=== PATIENT | female | born 2000 | race Caucasian/White ===

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

== ENCOUNTER 2019-01-12 15:07 | Emergency (ER) | payer OTHER, MEDICAID | END 2019-01-12 15:45 | disposition left against medical advice (07) | LOC: ER 15:07 | DX: Z53.21 Procedure and treatment not carried out due to patient leaving prior to being seen by health care provider (principal) ==

== ENCOUNTER 2019-08-02 15:28 | Emergency (ER) | payer OTHER, MEDICAID ==
[2019-08-02 15:35] VITALS: BP 118/68
--- NOTE | 2019-08-02 16:12 | ER Document Report ---
ED Medical Screen (RME) - General Chief Complaint: Lower Abdominal Pain Stated Complaint: ADBOMINAL PAIN Time Seen by Provider: 08/02/19 16:09 Primary Care Provider: LARRY SHAIKH MD [Primary Care Provider] - Follow up as needed Mode of Arrival: Ambulatory Information source: Patient Notes: 18-year-old female presented to ED for complaint of left pelvic and and left flank pain. She states she has nauseated yesterday not today. Last menstrual period was 07/22/2019. She states she has some frequency but no urgency or burning. She states she has had no abnormal vaginal discharge. She states she does have a history of an ovarian cyst. She does not smoke drink or drugs but does use vapor cigarettes. She is alert oriented respirations regular and unlabored speaking in full sentences. I have greeted and performed a rapid initial assessment of this patient. A comprehensive ED assessment and evaluation of the patient, analysis of test results and completion of medical decision making process will be conducted by an additional ED providers. TRAVEL OUTSIDE OF THE [place] IN LAST 30 DAYS: No - Related Data Allergies/Adverse Reactions: No Known Allergies Allergy (Verified 01/12/19 15:08) Past Medical History Renal/ Medical History: Denies: Hx Kidney Stones - kidney infection, Hx Peritoneal Dialysis Musculoskeltal Medical History: Reports Hx Musculoskeletal Deformity Past Surgical History: Reports: Hx Orthopedic Surgery - R thumb - Immunizations Immunizations up to date: Yes Hx Diphtheria, Pertussis, Tetanus Vaccination: Yes Physical Exam - Vital signs Vitals: Temp Pulse Resp BP Pulse Ox 98.9 F 87 18 118/68 99 08/02/19 15:34 08/02/19 15:34 08/02/19 15:34 08/02/19 15:34 08/02/19 15:34 Course - Vital Signs Vital signs: Temp Pulse Resp BP Pulse Ox 98.9 F 87 18 118/68 99 08/02/19 15:34 08/02/19 15:34 08/02/19 15:34 08/02/19 15:34 08/02/19 15:34 Doctor's Discharge - Discharge Referrals: LARRY SHAIKH MD [Primary Care Provider] - Follow up as needed
[2019-08-02 16:52] LABS: APPEARANCE,URINE SLIGHTLY-CLOUDY; BILIRUBIN,URINE NEGATIVE (NEGATIVE); COLOR,URINE YELLOW; GLUCOSE, URINE NEGATIVE (NEGATIVE); KETONES,URINE NEGATIVE (NEGATIVE); PROTEIN,URINE NEGATIVE (NEGATIVE); URINE SPECIFIC GRAVITY 1.008; UROBILINOGEN,URINE NEGATIVE mg/dL (<2.0)
--- NOTE | 2019-08-02 17:20 | ER Document Report ---
ED General - General Chief Complaint: Abdominal Pain Stated Complaint: ADBOMINAL PAIN Time Seen by Provider: 08/02/19 16:09 Primary Care Provider: LARRY SHAIKH MD [NO LOCAL MD] - Follow up in 1 week Mode of Arrival: Ambulatory Information source: Patient Notes: 18-year-old female presents emergency department with complaints of left-sided flank pain left pelvic pain. Reports she is had the symptoms for months. Reports she has a history of ovarian cyst but the same pain seems to be getting worse. She reports increased pain when she has intercourse. Denies pain with void. Denies vaginal discharge. Denies other symptoms such as fever vomiting diarrhea. Reports she took Plan B last month. She reports she had 2 menses last month. She just started her period today. Patient reports she was diagnosed with an ovarian cyst here couple months ago she was told to follow-up with her BINDER TECHNICIAN. She reports her father is in the and she is dependent. She reports that she is too embarrassed to ask him to get her card. Patient reports increased pain with intercourse. TRAVEL OUTSIDE OF THE [place] IN LAST 30 DAYS: No - HPI Onset: Other - MONTHS Quality of pain: Achy Associated symptoms: None Exacerbated by: Other - intercourse Relieved by: Denies Similar symptoms previously: Yes Recently seen / treated by doctor: No - Related Data Allergies/Adverse Reactions: No Known Allergies Allergy (Verified 01/12/19 15:08) Past Medical History - General Information source: Patient Last Menstrual Period: 07/22/19 - Social History Smoking Status: Current Every Day Smoker Cigarette use (# per day): No - vape Frequency of alcohol use: None Drug Abuse: None Lives with: Family Family History: Reviewed & Not Pertinent Patient has suicidal ideation: No Patient has homicidal ideation: No Renal/ Medical History: Reports: Hx Ovarian Cysts. Denies: Hx Kidney Stones - kidney infection, Hx Peritoneal Dialysis Musculoskeletal Medical History: Reports Hx Musculoskeletal Deformity Past Surgical History: Reports: Hx Orthopedic Surgery - R thumb - Immunizations Immunizations up to date: Yes Hx Diphtheria, Pertussis, Tetanus Vaccination: Yes Review of Systems - Review of Systems Notes: Review HPI for review of systems., All other systems negative Physical Exam - Vital signs Vitals: Temp Pulse Resp BP Pulse Ox 98.9 F 87 18 118/68 99 08/02/19 15:34 08/02/19 15:34 08/02/19 15:34 08/02/19 15:34 08/02/19 15:34 - General General appearance: Appears well, Alert In distress: None - HEENT Head: Normocephalic, Atraumatic Eyes: Normal Conjunctiva: Normal Extraocular movements intact: Yes Pupils: PERRL Ears: Normal External canal: Normal Tympanic membrane: Normal Sinus: Normal Nasal: Normal Mucous membranes: Moist Pharynx: Normal - Respiratory Respiratory status: No respiratory distress Chest status: Nontender Breath sounds: Normal Chest palpation: Normal - Cardiovascular Rhythm: Regular Heart sounds: Normal auscultation Murmur: No - Abdominal Inspection: Normal Distension: No distension Bowel sounds: Normal Tenderness: Nontender Organomegaly: No organomegaly - Genitourinary External exam: Normal Speculum exam: Normal Vaginal bleeding: Mild Bimanuel exam: Normal - Back Back: Normal, Nontender - NO C/O PAIN WITH PALPATION. No: CVA tenderness, Vertebra tenderness - Extremities General upper extremity: Normal ROM General lower extremity: Normal ROM, Normal weight bearing - Neurological Neuro grossly intact: Yes Cognition: Normal Orientation: AAOx4 Mikal Coma Scale Eye Opening: Spontaneous Mikal Coma Scale Verbal: Oriented [place] Coma Scale Motor: Obeys Commands Mikal Coma Scale Total: 15 Speech: Normal - Psychological Associated symptoms: Normal affect, Normal mood - Skin Skin Temperature: Warm Skin Moisture: Dry Skin Color: Normal Course - Re-evaluation Re-evalutation: 08/02/19 18:25 18-year-old female presents with left-sided flank pain left pelvic pain for 3 to 4 months. Reports she was diagnosed with ovarian cyst but has not followed up. Renal and transvaginal ultrasound were ordered by provider in triage. Pelvic completed. Patient tolerated procedure without problems. 08/02/19 18:25 Patient was instructed on treatment for STDs. She is unsure if she has one. She would like to be treated prophylactically. She is not interested in waiting for the results. UA unremarkable. Patient instructed on unremarkable pelvic ultrasound and renal ultrasound. Patient was instructed on the health department importance of follow-up with CONCAVING MACHINE OPERATOR or the health department. She verbalized understanding to all instructions. Urine Color YELLOW 08/02/19 16:30 Urine Appearance SLIGHTLY-CLOUDY 08/02/19 16:30 Urine pH 6.0 (5.0-9.0) 08/02/19 16:30 Ur Specific Weld 1.008 08/02/19 16:30 Urine Protein NEGATIVE mg/dL (NEGATIVE) 08/02/19 16:30 Urine Glucose (UA) NEGATIVE mg/dL (NEGATIVE) 08/02/19 16:30 Urine Ketones NEGATIVE mg/dL (NEGATIVE) 08/02/19 16:30 Urine Blood NEGATIVE (NEGATIVE) 08/02/19 16:30 Urine RBC (Auto) 1 /HPF 08/02/19 16:30 Pelvis Ultrasound 08/02/19 16:14 IMPRESSION: UNREMARKABLE PELVIC ULTRASOUND BY TRANSABDOMINAL TECHNIQUE. Renal Ultrasound 08/02/19 16:14 IMPRESSION: NORMAL RENAL AND BLADDER ULTRASOUND. COMPLEX FLUID COLLECTION ADJACENT TO THE SPLEEN COMPATIBLE WITH A DISTENDED STOMACH CONTAINING INGESTED CONTENT. - Vital Signs Vital signs: Temp Pulse Resp BP Pulse Ox 98.9 F 87 18 118/68 99 08/02/19 15:34 08/02/19 15:34 08/02/19 15:34 08/02/19 15:34 08/02/19 15:34 - Diagnostic Test Radiology reviewed: Image reviewed, Reports reviewed Procedures - Pelvic Exam Pelvic exam Time completed: 18:20 Cultures obtained: Yes Wet prep obtained: Yes Herpes culture obtained: No POC sent to lab: No Foreign body removed: No Bimanual exam performed: Yes Witnessed by: tim CLIFFORD Discharge - Discharge Clinical Impression: Left side pelvic pain, Flank pain Condition: Stable Disposition: HOME, SELF-CARE Instructions: Azithromycin ([facility]), Chlamydia ([facility]), Flank Pain ([facility]), Gonorrhea ([facility]), [facility] Department, Pelvic Pain ([facility]), Rocephin ([facility]) Additional Instructions: *You have been evaluated for flank and pelvic pain *Your STD cultures are pending. You been treated prophylactically with Rocephin and Zithromax for gonorrhea and chlamydia. You may contact the culture nurse at [phone] Tuesday through Tuesday 8 for your results. *Take Ibuprofen as indicated *Follow up with your BINDER TECHNICIAN or the health department within one week *Return to ED for worsening condition, changes, needs, increased pain, concerns Referrals: LARRY SHAIKH MD [NO LOCAL MD] - Follow up in 1 week
--- NOTE | 2019-08-02 18:09 | RADIOLOGY REPORT (SQ) ---
EXAM DESCRIPTION: U/S NON-OB PELVIS W/O DOP COMPLETED DATE/TIME: 08/02/2019 5:56 pm REASON FOR STUDY: Left pelvic and flank pain COMPARISON: None. TECHNIQUE: Dynamic and static grayscale images acquired of the pelvis via transabdominal approach an d recorded on PACS. Additional selected color Doppler and spectral images recorded. LIMITATIONS: Suboptimal study due to bowel gas. FINDINGS: UTERUS: Contour normal. No mass. ENDOMETRIAL STRIPE: No focal or generalized thickening. No masses. CERVIX: No nabothian cysts. RIGHT OVARY AND DOPPLER: Normal size. No worrisome masses. Color flow. LEFT OVARY AND DOPPLER: Normal size. No worrisome masses. Color-flow. FREE FLUID: None noted. OTHER: No other significant finding. MEASUREMENTS: UTERUS: 6.9 x 6.5 x 4.3 cm ENDOMETRIAL STRIPE: 9 mm RIGHT OVARY: 3.2 x 2.4 x 2.6 cm LEFT OVARY: 3.3 x 2.6 x 2.5 cm IMPRESSION: UNREMARKABLE PELVIC ULTRASOUND BY TRANSABDOMINAL TECHNIQUE. TECHNICAL DOCUMENTATION: JOB ID: [id number]- All Rights Reserved Rev-02/10 Reading location - IP/workstation name: [email or web address]
--- NOTE | 2019-08-02 18:20 | RADIOLOGY REPORT (SQ) ---
EXAM DESCRIPTION: U/S RETROPERITON (RENAL/AORTA) COMPLETED DATE/TIME: 08/02/2019 5:56 pm REASON FOR STUDY: Left flank pain COMPARISON: None. TECHNIQUE: Dynamic and static grayscale images acquired of the kidneys and bladder and recorded on P ACS. Additional selected color Doppler and spectral images recorded. LIMITATIONS: None. FINDINGS: RIGHT KIDNEY: Normal size. Normal echogenicity. No solid or suspicious masses. No hydronep hrosis. No calcifications. LEFT KIDNEY: Normal size. Normal echogenicity. No solid or suspicious masses. No hydronephrosis. No calcifications. BLADDER: No masses. OTHER FINDINGS: Complex fluid collection adjacent to the spleen containing air and floating material. IMPRESSION: NORMAL RENAL AND BLADDER ULTRASOUND. COMPLEX FLUID COLLECTION ADJACENT TO THE SPLEEN COMPATIBLE WITH A DISTENDED STOMACH CONTAINING INGEST ED CONTENT. TECHNICAL DOCUMENTATION: JOB ID: [id number] [employer]- All Rights Reserved Reading location - IP/workstation name: [email or web address]
[2019-08-02] MEDS ORDERED: LIDOCAINE 1% INJ-PF (10 MG/ML) 30 ML SDV INJ ONE (18:34)
[2019-08-02] MEDS ORDERED: AZITHROMYCIN 250 MG TABLET PO ONE (18:34)
[2019-08-02] MEDS ORDERED: CEFTRIAXONE INJ 250 MG VIAL IM ONE (18:34)
[2019-08-02 19:13] LABS: BACTERIA (WET MOUNT) 4+ BACTERIA SEEN; EPITHELIALS (WET MOUNT) 3+ EPITHELIALS SEEN; RBCS (WET MOUNT) FEW RBCS SEEN; T.VAGINALIS (WET MOUNT) NO TRICHOMONAS SEEN; WBCS (WET MOUNT) 1+ WBCS SEEN; YEAST (WET MOUNT) NO YEAST SEEN
[2019-08-02 20:31] LABS: CHLAM PCR NOT DETECTED (NOT DETECT)
== END 2019-08-02 19:24 | disposition home or self-care (01) ==
LOC: ER 15:28
DX: R10.2 Pelvic and perineal pain (principal); R10.9 Unspecified abdominal pain; Z87.42 Personal history of other diseases of the female genital tract; N94.10 Unspecified dyspareunia; F17.290 Nicotine dependence, other tobacco product, uncomplicated
CPT/HCPCS: 99284; 96372; 87210; 81025; 81001; 87491; 87591; 76770; 76856; J3490; J0696

== ENCOUNTER 2020-01-24 18:32 | Emergency (ER) | payer OTHER, MEDICAID ==
[2020-01-24 18:38] VITALS: BP 135/74
--- NOTE | 2020-01-24 19:40 | ER Document Report ---
ED Medical Screen (RME) - General Chief Complaint: Abdominal Pain Stated Complaint: ABDOMINAL PAIN Time Seen by Provider: 01/24/20 19:37 Mode of Arrival: Ambulatory Information source: Patient Notes: 19-year-old female presented to ED for complaint of abdominal burning since yesterday. She states she had similar symptoms last week and her boyfriend and his mother told her that she should not come to the emergency room but states she is feeling more sick. She states she is having a mucousy vaginal discharge also. She is 9 weeks 1 para 0. She states she has had an ultr asound at her [employer] at 6 weeks and she does have a intrauterine . She states she called her [employer] and they told her to come to the emergency room and get blood and urine sent to be sure she does not have an infection. Patient is alert oriented respirations regular nonlabored speaking in full sentences. I have greeted and performed a rapid initial assessment of this patient. A comp rehensive ED assessment and evaluation of the patient, analysis of test results and completion of medical decision making process will be conducted by an additional ED providers. TRAVEL OUTSIDE OF THE [place] IN LAST 30 DAYS: No - Related Data Allergies/Adverse Reactions: No Known Allergies Allergy (Verified 01/12/19 15:08) Past Medical History Renal/ Medical History: Reports: Hx Ovarian Cysts. Denies: Hx Kidney Stones - kidney infection, Hx Peritoneal Dialysis Musculoskeltal Medical History: Reports Hx Musculoskeletal Deformity Past Surgical History: Reports: Hx Orthopedic Surgery - R thumb - Immunizations Immunizations up to date: Yes Hx Diphtheria, Pertussis, Tetanus Vaccination: Yes Physical Exam - Vital signs Vitals: Temp Pulse Resp BP Pulse Ox 99.0 F 90 18 135/74 H 100 01/24/20 18:37 01/24/20 18:37 01/24/20 18:37 01/24/20 18:37 01/24/20 18:37 Course - Vital Signs Vital signs: Temp Pulse Resp BP Pulse Ox 99.0 F 90 18 135/74 H 100 01/24/20 18:37 01/24/20 18:37 01/24/20 18:37 01/24/20 18:37 01/24/20 18:37
[2020-01-24 20:03] LABS: ABSOLUTE LYMPHOCYTES (AUTO) 1.8 10^3/uL (0.5-4.7); ABSOLUTE MONOCYTES (AUTO) 0.6 10^3/uL (0.1-1.4); ABSOLUTE NEUT (AUTO) 6.6 10^3/uL (1.7-8.2); BASOPHILS % (AUTO) 0.3 % (0-2); EOSINOPHILS % (AUTO) 0.4 % (0-6); HEMATOCRIT 38.2 % (36.0-47.0); HEMOGLOBIN 13.9 g/dL (12.0-15.5); LYMPHOCYTES % (AUTO) 20.1 % (13-45); MEAN CORPUSCULAR HEMOGLOBIN 31.7 pg (27.0-33.4); MEAN CORPUSCULAR HGB CONC 36.3 g/dL (32.0-36.0); MEAN CORPUSCULAR VOLUME 87 fl (80-97); MONOCYTES % (AUTO) 6.7 % (3-13); PLATELET COUNT 242 10^3/uL (150-450); RED BLOOD COUNT 4.38 10^6/uL (3.72-5.28); RED CELL DISTRIBUTION WIDTH 13.1 % (11.5-14.0); SEGMENTED NEUTROPHILS % (AUTO) 72.5 % (42-78); TOTAL CELLS COUNTED % (AUTO) 100 %; WHITE BLOOD COUNT 9.1 10^3/uL (4.0-10.5)
[2020-01-24 20:13] LABS: APPEARANCE,URINE SLIGHTLY-CLOUDY; BILIRUBIN,URINE NEGATIVE (NEGATIVE); COLOR,URINE YELLOW; GLUCOSE, URINE NEGATIVE (NEGATIVE); KETONES,URINE NEGATIVE (NEGATIVE); PROTEIN,URINE NEGATIVE (NEGATIVE); URINE SPECIFIC GRAVITY 1.011; UROBILINOGEN,URINE NEGATIVE mg/dL (<2.0)
--- NOTE | 2020-01-24 20:14 | ER Document Report ---
ED General - General Chief Complaint: Abdominal Pain Stated Complaint: ABDOMINAL PAIN Time Seen by Provider: 01/24/20 19:37 Mode of Arrival: Ambulatory Information source: Patient Notes: contact center professional note Pt presents to ED for "stomach burning all over". The pt is concerned because she had a green bowel movement. No n/v. The pt is 12 weeks . The pt is . Clear mucus discharge. The pt is aox4. Resps even and unlabored. Keshawn PROFESSOR OF GRAPHIC DESIGN note 19-year-old female presented to ED for complaint of abdominal burning since yesterday. She states she had similar symptoms last week and her boyfriend and his mother told her that she should not come to the emergency room but states she is feeling more sick. She states she is having a mucousy vaginal discharge also. She is 9 weeks 1 para 0. She states she has had an ultrasound at her [facility] [employer]PER[facility] at 6 weeks and she does have a intrauterine . She states she called her WET END OPERATOR and they told her to come to the emergency room and get blood and urine sent to be sure she does not have an infection. Patient is alert oriented respirations regular nonlabored speaking in full sentences. 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 Patient reports she has a 22-year-old sister name Summer who has 4 living children and BTL already. Patient reports this is her first and she had Nexalon in her right arm as control for many years. Patient reports she has not been taking any vitamins because they make her sick and vomit. She was diagnosed as being at 8 weeks and was also diagnosed with anxiety by her OB doctor because of her apprehension and tightness in her chest periodically. Patient reports when she was 11 years old her mother left both sister and father and she no longer keeps in contact with her mother.. Patient has poor appetite which is lifelong and apparently she induces herself to vomit when she does not feel right.. Patient appears very thin and anemic appearing and pale. She is now G1, P0 at 12 weeks. Patient reports she did work at [employer] but quit at least 4 weeks ago because she was feeling poorly. Patient has been feeling chills only and denies any nausea vomiting cough or cold sore throat cephalgia extremity pains. She did reports she had brown stool that was surrounded by green stool this morning. She denies any use of any illegal drugs [id number] nonprescription drugs herbal medications or Gatorade or Andrea-Aid or Pedialyte that would discolor her stools. She denies any alcohol or THC marijuana. TRAVEL OUTSIDE OF THE [place] IN LAST 30 DAYS: No - HPI Onset: This morning Onset/Duration: Persistent, Worse Quality of pain: No pain Pain Level: Denies Associated symptoms: Chills Exacerbated by: Denies Relieved by: Denies Similar symptoms previously: Yes Recently seen / treated by doctor: Yes - She is scheduled to see her OB doctor at [facility] tomorrow - Related Data Allergies/Adverse Reactions: No Known Allergies Allergy (Verified 01/12/19 15:08) Past Medical History - General Information source: Patient - Social History Smoking Status: Never Smoker Cigarette use (# per day): No Chew tobacco use (# tins/day): No Smoking Education Provided: No Frequency of alcohol use: None Drug Abuse: None Lives with: Family Family History: Reviewed & Not Pertinent Patient has homicidal ideation: No Renal/ Medical History: Reports: Hx Ovarian Cysts. Denies: Hx Kidney Stones - kidney infection, Hx Peritoneal Dialysis Musculoskeletal Medical History: Reports Hx Musculoskeletal Deformity Past Surgical History: Reports: Hx Orthopedic Surgery - R thumb - Immunizations Immunizations up to date: Yes Hx Diphtheria, Pertussis, Tetanus Vaccination: Yes Review of Systems - Review of Systems Constitutional: See HPI, Weakness EENT: No symptoms reported Cardiovascular: No symptoms reported Respiratory: No symptoms reported Gastrointestinal: See HPI, Constipation - green stools Genitourinary: No symptoms reported Female Genitourinary: No symptoms reported Musculoskeletal: No symptoms reported Skin: No symptoms reported Hematologic/Lymphatic: No symptoms reported Neurological/Psychological: No symptoms reported Physical Exam - Vital signs Vitals: Temp Pulse Resp BP Pulse Ox 99.0 F 90 18 135/74 H 100 01/24/20 18:37 01/24/20 18:37 01/24/20 18:37 01/24/20 18:37 01/24/20 18:37 Interpretation: Febrile - General General appearance: Alert - HEENT Head: Normocephalic, Atraumatic Eyes: Normal Pupils: PERRL Mouth/Lips: Normal Pharynx: Erythema - post pharyngeal mm Neck: Normal - Respiratory Respiratory status: No respiratory distress Chest status: Nontender Breath sounds: Normal Chest palpation: Normal - Cardiovascular Rhythm: Regular Heart sounds: Normal auscultation Murmur: No - Abdominal Inspection: Normal Distension: No distension Bowel sounds: Normal Tenderness: Nontender Organomegaly: No organomegaly - Back Back: Normal - Extremities General upper extremity: Normal inspection General lower extremity: Normal inspection - Neurological Neuro grossly intact: Yes Cognition: Normal Orientation: AAOx4 Mikal Coma Scale Eye Opening: Spontaneous Mikal Coma Scale Verbal: Oriented Mikal Coma Scale Motor: Obeys Commands Rudd Coma Scale Total: 15 Speech: Normal Motor strength normal: LUE, RUE, LLE, RLE Sensory: Normal - Psychological Associated symptoms: Normal affect - Skin Skin Temperature: Warm Skin Moisture: Dry Course - Vital Signs Vital signs: Temp Pulse Resp BP Pulse Ox 99.0 F 90 18 135/74 H 100 01/24/20 19:33 01/24/20 18:37 01/24/20 18:37 01/24/20 18:37 01/24/20 18:37 - Laboratory Result Diagrams: 01/24/20 19:50 01/24/20 19:50 Laboratory results interpreted by me: 01/24/20 01/24/20 19:50 19:50 MCHC 36.3 H Sodium 133.2 L Critical Care Note - Critical Care Note Total time excluding time spent on procedures (mins): 90 Comments: Patient eloped at 0020 according to Rubens TRUONG and patient did have concerns that she was getting checked for COVID-19 and strep and influenza and did not want a ultrasound transvaginal because of her preference. She was advised by nursing staff that any under 14 weeks gets a transvaginal ultrasound. Discharge - Discharge Clinical Impression: Fever, Chills, Condition: Good Disposition: ELOPED
[2020-01-24 20:21] LABS: ALBUMIN 4.1 g/dL (3.5-5.0); ALKALINE PHOSPHATASE 38 U/L (38-126); ANION GAP 8 (5-19); ASPARTATE AMINO TRANSFERASE 17 U/L (14-36); BILIRUBIN,TOTAL 0.4 mg/dL (0.2-1.3); BLOOD UREA NITROGEN 7 mg/dL (7-20); CALCIUM 9.1 mg/dL (8.4-10.2); CARBON DIOXIDE 23 mmol/L (22-30); CHLORIDE 102 mmol/L (98-107); GLUCOSE 87 mg/dL (75-110); POTASSIUM 3.9 mmol/L (3.6-5.0); TOTAL PROTEIN 6.9 g/dL (6.3-8.2)
[2020-01-24 22:52] LABS: CHLAM PCR NOT DETECTED (NOT DETECT)
== END 2020-01-25 00:30 | disposition left against medical advice (07) ==
LOC: ER 18:32
DX: O26.891 Other specified pregnancy related conditions, first trimester (principal); R50.9 Fever, unspecified; R10.9 Unspecified abdominal pain; R53.1 Weakness; K59.00 Constipation, unspecified; Z3A.12 12 weeks gestation of pregnancy
CPT/HCPCS: 36415; 80053; 81001; 83690; 84443; 84702; 85025; 86900; 86901; 87491; 87591; 99281

== ENCOUNTER 2020-06-16 12:43 | Outpatient (CLI) | payer OTHER, MEDICAID ==
--- NOTE | 2020-06-16 13:31 | Non Stress Test Report ---
Non Stress Test Datetime Report Generated by CPN: 06/16/2020 13:31 DEMOGRAPHIC Test Number: 1 EGA NST: 32.3 INDICATION Indication for Study (NST) Other: non-reactive NST in office VITAL SIGNS Temperature - NST: 98.5 Pulse - NST: 89 RESP - NST: 17 NBPSYS NST: 96 NBPDIA NST: 51 MONITORING Monitor Explained: Monitor Explained; Test Explained; Patient Verbalized Understanding Time on Monitor: 06/16/2020 13:05 Time off Monitor: 06/16/2020 13:29 NST Duration: 24 NST INTERVENTIONS NST Interventions: PO Hydration BABY A: [id number] BABY A Movement : Present Contraction Frequency : none FHR Baseline : 140 Accelerations : 15X15 Decelerations : None Variability : Moderate 6-25bpm NST Review: Meets Criteria for Reactive NST NST Review and Verified By : Swapna Estrada RN NSBreana Results: Reactive NST REPORT Report Trigger: Send Report
== END 2020-06-16 13:33 | disposition home or self-care (01) ==
LOC: LC 12:43
PROVIDERS: ATTEND Obstetrics & Gynecology Gynecology
DX: O24.419 Gestational diabetes mellitus in pregnancy, unspecified control (principal); Z3A.32 32 weeks gestation of pregnancy
CPT/HCPCS: 59025

== ENCOUNTER 2020-07-05 11:32 | Outpatient (CLI) | payer OTHER, MEDICAID ==
--- NOTE | 2020-07-05 12:23 | Non Stress Test Report ---
Non Stress Test Datetime Report Generated by CPN: 07/05/2020 12:23 DEMOGRAPHIC EGA NST: 35.1 INDICATION Indication for Study (NST) Other: blurred vision MONITORING Monitor Explained: Monitor Explained; Test Explained; Patient Verbalized Understanding Time on Monitor: 07/05/2020 11:50 NST INTERVENTIONS NST Interventions: None BABY A: [id number] BABY A Movement : Present Contraction Frequency : irregular FHR Baseline : 145 Accelerations : 15X15 Decelerations : None Variability : Moderate 6-25bpm NST Review: Meets Criteria for Reactive NST NST Review and Verified By : M. Melo RN NST Results: Reactive NST REPORT Report Trigger: Send Report
[2020-07-05 12:36] LABS: AMORPHOUS SEDIMENT,URINE TRACE /HPF; APPEARANCE,URINE CLOUDY; BILIRUBIN,URINE NEGATIVE (NEGATIVE); COLOR,URINE YELLOW; GLUCOSE, URINE NEGATIVE (NEGATIVE); KETONES,URINE NEGATIVE (NEGATIVE); LEUKOCYTE ESTERASE,URINE TRACE (NEGATIVE); NITRITE,URINE NEGATIVE (NEGATIVE); PROTEIN,URINE NEGATIVE (NEGATIVE); URINE SPECIFIC GRAVITY 1.004; UROBILINOGEN,URINE NEGATIVE mg/dL (<2.0)
[2020-07-05 12:56] LABS: URINE AMPHETAMINES SCREEN NEGATIVE; URINE BARBITURATES SCREEN NEGATIVE; URINE BENZODIAZEPINES SCREEN NEGATIVE; URINE COCAINE SCREEN NEGATIVE; URINE MARIJUANA (THC) SCREEN NEGATIVE; URINE METHADONE SCREEN NEGATIVE; URINE PHENCYCLIDINE SCREEN NEGATIVE
== END 2020-07-05 12:35 | disposition home or self-care (01) ==
LOC: LC 11:32
PROVIDERS: ATTEND Obstetrics & Gynecology Gynecology
DX: O26.893 Other specified pregnancy related conditions, third trimester (principal); Z3A.35 35 weeks gestation of pregnancy; H53.8 Other visual disturbances
CPT/HCPCS: 59025; 80307; 81001

== ENCOUNTER 2020-07-24 16:27 | Outpatient (CLI) | payer OTHER, MEDICAID ==
[2020-07-24 17:22] LABS: APPEARANCE,URINE CLOUDY; BILIRUBIN,URINE NEGATIVE (NEGATIVE); COLOR,URINE YELLOW; GLUCOSE, URINE NEGATIVE (NEGATIVE); KETONES,URINE NEGATIVE (NEGATIVE); LEUKOCYTE ESTERASE,URINE MODERATE (NEGATIVE); NITRITE,URINE NEGATIVE (NEGATIVE); PROTEIN,URINE NEGATIVE (NEGATIVE); URINE SPECIFIC GRAVITY 1.004; UROBILINOGEN,URINE NEGATIVE mg/dL (<2.0)
[2020-07-24 17:37] LABS: URINE AMPHETAMINES SCREEN NEGATIVE; URINE BARBITURATES SCREEN NEGATIVE; URINE BENZODIAZEPINES SCREEN NEGATIVE; URINE COCAINE SCREEN NEGATIVE; URINE MARIJUANA (THC) SCREEN NEGATIVE; URINE METHADONE SCREEN NEGATIVE; URINE PHENCYCLIDINE SCREEN NEGATIVE
--- NOTE | 2020-07-24 18:21 | Non Stress Test Report ---
Non Stress Test Datetime Report Generated by CPN: 07/24/2020 18:21 DEMOGRAPHIC EGA NST: 37.6 INDICATION Indication for Study (NST) Other: suspected SROM VITAL SIGNS Temperature - NST: 98.7 MONITORING Monitor Explained: Monitor Explained; Test Explained; Patient Verbalized Understanding Time on Monitor: 07/24/2020 16:45 Time off Monitor: 07/24/2020 18:05 NST Duration: 80 NST INTERVENTIONS NST Interventions: PO Hydration Physician Notified NST: Marga Hunter, CNM BABY A: [id number] BABY A Movement : Present Contraction Frequency : irregular, occasional FHR Baseline : 145 Accelerations : 15X15 Decelerations : None Variability : Moderate 6-25bpm NST Review: Meets Criteria for Reactive NST NST Results: Reactive NST REPORT Report Trigger: Send Report
== END 2020-07-24 18:12 | disposition home or self-care (01) ==
LOC: LC 16:27
PROVIDERS: ATTEND Obstetrics & Gynecology Gynecology
DX: Z03.79 Encounter for other suspected maternal and fetal conditions ruled out (principal); Z3A.37 37 weeks gestation of pregnancy
CPT/HCPCS: 59025; 80307; 81005; 84112

== ENCOUNTER 2020-08-05 00:03 | Outpatient (CLI) | payer MEDICAID ==
[2020-08-05 00:47] LABS: APPEARANCE,URINE SLIGHTLY-CLOUDY; BILIRUBIN,URINE NEGATIVE (NEGATIVE); COLOR,URINE STRAW; GLUCOSE, URINE NEGATIVE (NEGATIVE); KETONES,URINE NEGATIVE (NEGATIVE); LEUKOCYTE ESTERASE,URINE NEGATIVE (NEGATIVE); NITRITE,URINE NEGATIVE (NEGATIVE); PROTEIN,URINE NEGATIVE (NEGATIVE); URINE SPECIFIC GRAVITY 1.004; UROBILINOGEN,URINE NEGATIVE mg/dL (<2.0)
[2020-08-05 01:07] LABS: URINE AMPHETAMINES SCREEN NEGATIVE; URINE BARBITURATES SCREEN NEGATIVE; URINE BENZODIAZEPINES SCREEN NEGATIVE; URINE COCAINE SCREEN NEGATIVE; URINE MARIJUANA (THC) SCREEN NEGATIVE; URINE METHADONE SCREEN NEGATIVE; URINE PHENCYCLIDINE SCREEN NEGATIVE
--- NOTE | 2020-08-05 02:36 | Non Stress Test Report ---
Non Stress Test Datetime Report Generated by CPN: 08/05/2020 02:35 DEMOGRAPHIC EGA NST: 39.4 INDICATION Indication for Study (NST) Other: Gestational age greater than 32 weeks VITAL SIGNS Temperature - NST: 98.3 Pulse - NST: 80 RESP - NST: 17 NBPSYS NST: 112 NBPDIA NST: 57 MONITORING Monitor Explained: Monitor Explained; Test Explained; Patient Verbalized Understanding Time on Monitor: 08/05/2020 00:17 Time off Monitor: 08/05/2020 00:56 NST Duration: 39 NST INTERVENTIONS NST Interventions: PO Hydration; Reposition Patient Physician Notified NST: Dr. Aravind BABY A: [id number] BABY A Movement : Present Contraction Frequency : 5-7 FHR Baseline : 125 Accelerations : 15X15 Decelerations : None Variability : Moderate 6-25bpm NST Review: Meets Criteria for Reactive NST NST Review and Verified By : Lane Botello RN NST Results: Reactive NST REPORT Report Trigger: Send Report
== END 2020-08-05 02:30 | disposition home or self-care (01) ==
LOC: LC 00:03
PROVIDERS: ATTEND Obstetrics & Gynecology Gynecology
DX: O47.1 False labor at or after 37 completed weeks of gestation (principal); Z3A.39 39 weeks gestation of pregnancy
CPT/HCPCS: 59025; 80307; 81005

== ENCOUNTER 2020-08-05 05:56 | Outpatient (CLI) | payer MEDICAID ==
[2020-08-05] MEDS ORDERED: MORPHINE SULFATE 10 MG/ML INJ IV ONE (08:33)
[2020-08-05] MEDS ORDERED: MORPHINE SULFATE 10 MG/ML INJ ONE (08:38)
--- NOTE | 2020-08-05 08:58 | Non Stress Test Report ---
Non Stress Test Datetime Report Generated by CPN: 08/05/2020 08:57 DEMOGRAPHIC EGA NST: 39.4 INDICATION Indication for Study (NST) Other: LC at 39.0 VITAL SIGNS Temperature - NST: 97.9 Pulse - NST: 102 RESP - NST: 17 NBPSYS NST: 113 NBPDIA NST: 82 MONITORING Monitor Explained: Monitor Explained; Test Explained; Patient Verbalized Understanding Time on Monitor: 08/05/2020 06:23 Time off Monitor: 08/05/2020 06:43 NST Duration: 20 NST INTERVENTIONS NST Interventions: PO Hydration Physician Notified NST: NRobertson,CNM BABY A: [id number] BABY A Movement : Present Contraction Frequency : 1-3 FHR Baseline : 125 Accelerations : 15X15 Decelerations : None Variability : Moderate 6-25bpm NST Review: Meets Criteria for Reactive NST NST Review and Verified By : ALEXI Moon Results: Reactive NST REPORT Report Trigger: Send Report
== END 2020-08-05 08:53 | disposition home or self-care (01) ==
LOC: LC 05:56
PROVIDERS: ATTEND Obstetrics & Gynecology
DX: O47.1 False labor at or after 37 completed weeks of gestation (principal); Z3A.39 39 weeks gestation of pregnancy
CPT/HCPCS: 59025; J2270

== ENCOUNTER 2020-08-06 01:25 | Outpatient (CLI) | payer MEDICAID ==
[2020-08-06] MEDS ORDERED: HYDROXYZINE PAMOATE 50 MG CAPSULE PO ONE (02:59)
[2020-08-06] MEDS ORDERED: HYDROXYZINE PAMOATE 50 MG CAPSULE ONE (02:59)
--- NOTE | 2020-08-06 03:10 | Non Stress Test Report ---
Non Stress Test Datetime Report Generated by CPN: 08/06/2020 03:09 DEMOGRAPHIC EGA NST: 39.5 INDICATION Indication for Study (NST) Other: LC- ctx VITAL SIGNS Temperature - NST: 98.1 Pulse - NST: 104 RESP - NST: 17 NBPSYS NST: 112 NBPDIA NST: 62 MONITORING Monitor Explained: Monitor Explained; Test Explained; Patient Verbalized Understanding Time on Monitor: 08/06/2020 02:00 Time off Monitor: 08/06/2020 03:00 NST Duration: 60 NST INTERVENTIONS NST Interventions: PO Hydration Physician Notified NST: Dr. Francis BABY A: [id number] BABY A Movement : Present Contraction Frequency : 2-5 FHR Baseline : 135 Accelerations : 15X15 Decelerations : None Variability : Moderate 6-25bpm NST Review: Meets Criteria for Reactive NST NST Review and Verified By : Swapna Garcia RN NST Results: Reactive NST REPORT Report Trigger: Send Report
== END 2020-08-06 03:07 | disposition home or self-care (01) ==
LOC: LC 01:25
PROVIDERS: ATTEND Obstetrics & Gynecology
DX: O47.1 False labor at or after 37 completed weeks of gestation (principal); Z3A.39 39 weeks gestation of pregnancy; O24.410 Gestational diabetes mellitus in pregnancy, diet controlled
CPT/HCPCS: 59025; 84112; J3490

== ENCOUNTER 2020-08-06 08:42 | Inpatient (IN) | payer MEDICAID, OTHER ==
[2020-08-06] MEDS ORDERED: RINGERS SOLUTION,LACTATED 1,000 ML IV ONE (09:18)
[2020-08-06] MEDS ORDERED: RINGERS SOLUTION,LACTATED 1,000 ML IV PRN (09:19)
[2020-08-06 09:20] LABS: ABSOLUTE LYMPHOCYTES (AUTO) 1.2 10^3/uL (0.5-4.7); ABSOLUTE MONOCYTES (AUTO) 0.5 10^3/uL (0.1-1.4); ABSOLUTE NEUT (AUTO) 8.3 10^3/uL (1.7-8.2); BASOPHILS % (AUTO) 0.3 % (0-2); EOSINOPHILS % (AUTO) 0.1 % (0-6); HEMATOCRIT 37.7 % (36.0-47.0); HEMOGLOBIN 13.2 g/dL (12.0-15.5); LYMPHOCYTES % (AUTO) 12.1 % (13-45); MEAN CORPUSCULAR HEMOGLOBIN 31.1 pg (27.0-33.4); MEAN CORPUSCULAR VOLUME 89 fl (80-97); MONOCYTES % (AUTO) 4.8 % (3-13); PLATELET COUNT 191 10^3/uL (150-450); RED BLOOD COUNT 4.23 10^6/uL (3.72-5.28); RED CELL DISTRIBUTION WIDTH 13.6 % (11.5-14.0); SEGMENTED NEUTROPHILS % (AUTO) 82.7 % (42-78); TOTAL CELLS COUNTED % (AUTO) 100 %; WHITE BLOOD COUNT 10.1 10^3/uL (4.0-10.5)
[2020-08-06 09:32] LABS: APPEARANCE,URINE CLEAR; BILIRUBIN,URINE NEGATIVE (NEGATIVE); COLOR,URINE YELLOW; GLUCOSE, URINE NEGATIVE (NEGATIVE); KETONES,URINE 80 mg/dL (NEGATIVE); LEUKOCYTE ESTERASE,URINE TRACE (NEGATIVE); NITRITE,URINE NEGATIVE (NEGATIVE); PROTEIN,URINE NEGATIVE (NEGATIVE); URINE SPECIFIC GRAVITY 1.013; UROBILINOGEN,URINE NEGATIVE mg/dL (<2.0)
[2020-08-06 09:48] LABS: URINE AMPHETAMINES SCREEN NEGATIVE; URINE BARBITURATES SCREEN NEGATIVE; URINE BENZODIAZEPINES SCREEN NEGATIVE; URINE COCAINE SCREEN NEGATIVE; URINE MARIJUANA (THC) SCREEN NEGATIVE; URINE METHADONE SCREEN NEGATIVE; URINE PHENCYCLIDINE SCREEN NEGATIVE
[2020-08-06] MEDS ORDERED: MISOPROSTOL 0.2 MG TABLET ONE (09:51)
[2020-08-06] MEDS ORDERED: OXYTOCIN 10 UNIT/ML VIAL ONE (09:51)
[2020-08-06] MEDS ORDERED: EPHEDRINE SULFATE INJ 50 MG/1 ML AMPULE ONE (09:52)
[2020-08-06] MEDS ORDERED: OXYTOCIN/0.9 % SODIUM CHLORIDE 30 UNIT/500 ML RTUINJ ONE (09:52)
[2020-08-06] MEDS ORDERED: FENTANYL/BUPIVACAINE/NS/PF 300 MCG/150 ML RTUINJ EPI ONE (09:52)
[2020-08-06] MEDS ORDERED: ROPIVACAINE HCL 0.2% INJ/PF (2 MG/ML) 20 ML SDV ONE (09:52)
[2020-08-06] MEDS ORDERED: LIDOCAINE 1% INJ-PF (10 MG/ML) 30 ML SDV ONE (09:52)
--- NOTE | 2020-08-06 10:13 | Admission Physical ---
Datetime Report Generated by CPN: 08/06/2020 10:13 CURRENT ADMISSION Hx Assessment: The History has been Reviewed and is Current Chief Complaint: Uterine Contractions Admit Impression : Term, Intrauterine Admit Plan: Admit to Unit; Initiate Labor Protocol ALLERGIES Medication Allergies: No Medication Allergies: No Known Allergies (08/06/2020) Latex: No Latex Allergies Food Allergies: none Environmental Allergies: none OBSTETRICAL HISTORY EDC: 08/08/2020 00:00 : 1 Para: 0 Term: 0 : 0 SAB: 0 IAB: 0 Ectopic: 0 Livin Cesareans: 0 VBACs: 0 Multiple Births: 0 Gestational Diabetes: No Rh Sensitization: No Incompetent Cervix: No CRISS: No Infertility: No ART Treatment: No Uterine Anomaly: No IUGR: No Hx Previous C/S: No Macrosomia: No Hx Loss/Stillborn: No PIH: No Hx : No Placenta Previa/Abruption: No Depression/PP Depression: No PTL/PROM: No Post Hemorrhage: No Current Procedures: Ultrasound Obstetrical History Comments: G1- Current SEE RECORDS Alcohol: No Marijuana : No Cocaine: No Other Illicit Drugs: No Cigarettes: Never Smoker. [id number] MEDICAL HISTORY Diabetes: Yes Diabetes Type: Gestational Diabetes Blood Transfusion: No Pulmonary Disease (Asthma, TB): No Breast Disease: No Hypertension: No Lead Applications Developer Surgery: No Heart Disease: No Hosp/Surgery: No Autoimmune Disorder: No Anesthetic Complications: No Kidney Disease: Yes Abnormal Pap Smear: No Neuro/Epilepsy: No Psychiatric Disorders: No Other Medical Diseases: No Hepatitis/Liver Disease: No Significant Family History: No Varicosities/Phlebitis: No Trauma/Violence : No Thyroid Dysfunction: No Medical History Comments: wisdom teeth (2014), finger surgery (11 months and repeat surgery at 11 years old), GDM (diet controlled) INFECTIOUS HISTORY Gonorrhea: No Genital Herpes: No Chlamydia: Yes Tuberculosis: No Syphilis: No Hepatitis: No HIV/AIDS Exposure: No Rash or Viral Illness: No HPV: No Infectious History Comments: Chlamydia treated in 2018 PHYSICAL EXAM General: Normal HEENT: Normal Neurologic: Normal Thyroid: Normal Heart: Normal Lungs: Normal Breast: Normal Back: Normal Abdomen: Normal Genitourinary Exam: Normal Extremities: Normal DTRs: Normal Pelvic Type: Adequate Vital Signs: Reviewed; Within Normal Limits VAGINAL EXAM Contraction Comments: Contractions Q 4minutes MEMBRANES Membranes: Intact FETUS A EGA: 39.5 Monitoring: External US FHR- Baseline: 135 Variability: Moderate 6-25bpm Accelerations: 15X15 Decelerations: None FHR Category: Category I Presentation: Breech Admit Comment: G1 at 39.5 wks EGA in active labor -Admit to LDR due to cervical change from 2 to 5 cm, painful contractions -NPO and IVFs : LR at 125 cc/hr after 1 liter bolus -CEFM and toco -GBS negative -Desires epidural for pain management -Anticipate PLANS FOR LABOR AND DELIVERY Labor and Delivery: None Pain Management: Epidural Feeding Preference: Breast Benefit of Breast Feed Discussed: Yes Circumcision: Yes INFORMED CONSENT Informed Consent Obtained: Vaginal Delivery; Section Delivery; Vacuum/Forceps Assist; Risks, Benefits and Alternatives Discussed Signature: with User ID: Eliza : with User ID: Eliza
[2020-08-06] MEDS ORDERED: DEXTROSE 40% GEL 15 GM TUBE PO PRN ×2 (10:50)
[2020-08-06] MEDS ORDERED: GLUCAGON,HUMAN RECOMB 1 MG INJ IM PRN (10:50)
[2020-08-06] MEDS ORDERED: DEXTROSE 50%-WATER 25 GM/50 ML DISP.SYRIN IV PRN ×2 (10:50)
--- NOTE | 2020-08-06 15:37 | L&D Progress Notes ---
PROGRESS NOTES Datetime Report Generated by CPN: 08/06/2020 15:37 PROGRESS NOTE Impression: Normal Progression of Labor Procedures: Artificial ROM; Sterile Vag Exam Plan: Continue Present Management; Augmentation Informed Consent Obtained: Vaginal Delivery; Risks, Benefits and Alternatives Discussed Vital Signs : Reviewed; Within Normal Limits Comment: S: comfortable with epidural, feeling some pain but improved overall, agreeable to AROM O: vss, cat I tracing, cervix and contractions as stated A: IUP @ 39w5d- progressing, stable AROM-moderate amount of meconium P: start pit augment at this time, anticipate delivery VAGINAL EXAM Contractions: irregular LAST VAGINAL EXAM-NURSING Nursing Exam Dilitation: 7.0 Nursing Exam Effacement: 100 Nursing Exam Station: 0 MEMBRANES Membranes: Ruptured Amniotic Fluid Color: Meconium, Heavy FETUS A Monitoring: External US FHR Category: Category I : 39.5 Presentation: Breech SIGNATURE SIGNATURE: [id number];[id number];[id number] Assignment: Alyssa Carranza MD Signature: with User ID: Billy : with User ID: Billy
[2020-08-06] MEDS ORDERED: OXYTOCIN/0.9 % SODIUM CHLORIDE 30 UNIT/500 ML RTUINJ IV PRN (15:42)
[2020-08-06] MEDS ORDERED: DIPHENHYDRAMINE HCL 50 MG/ML VIAL ONE (18:51)
[2020-08-06] MEDS ORDERED: ACETAMINOPHEN 325 MG TABLET ONE (18:52)
[2020-08-06] MEDS ORDERED: DIPHENHYDRAMINE HCL 50 MG/ML VIAL IV ONE (18:52)
[2020-08-06] MEDS ORDERED: ACETAMINOPHEN 325 MG TABLET PO ONE (18:53)
[2020-08-06] MEDS ORDERED: MAG HYDROX/AL HYDROX/SIMETH SUSP 30 ML UDCUP ONE (21:18)
[2020-08-06] MEDS ORDERED: MAG HYDROX/AL HYDROX/SIMETH SUSP 30 ML UDCUP PO ONE (21:22)
--- NOTE | 2020-08-07 00:25 | Warning Signs in Babies ---
VOD Warning Signs Datetime Report Generated by [facility]: 08/07/2020 00:25 VOD#608 -Warning Signs in Babies: Needs to be viewed. (04/29/2020 21:13:Georgina Hoover RN)
[2020-08-07] MEDS ORDERED: MEASLES,MUMPS&RUBELLA VACC/PF 0.5 ML VIAL SUBCUT PRN (00:27)
[2020-08-07] MEDS ORDERED: GLYCERIN/WITCH HAZEL LEAF 1 EACH MED..WIPE TP PRN (00:27)
[2020-08-07] MEDS ORDERED: ACETAMINOPHEN WITH CODEINE #3 TABLET PO PRN ×2 (00:27)
[2020-08-07] MEDS ORDERED: BENZOCAINE/MENTHOL AEROSOL SPRAY 56 ML TOP PRN (00:27)
[2020-08-07] MEDS ORDERED: DIPHENHYDRAMINE HCL 25 MG CAPSULE PO PRN (00:27)
[2020-08-07] MEDS ORDERED: OXYTOCIN/0.9 % SODIUM CHLORIDE 30 UNIT/500 ML RTUINJ IV PRN (00:27)
[2020-08-07] MEDS ORDERED: NA PHOS,M-B/NA PHOS,DI-BA (ADULT) 133 ML ENEMA PR PRN (00:27)
[2020-08-07] MEDS ORDERED: ACETAMINOPHEN 325 MG TABLET PO PRN (00:27)
[2020-08-07] MEDS ORDERED: PROMETHAZINE HCL 25 MG SUPP.RECT PR PRN (00:27)
[2020-08-07] MEDS ORDERED: ACETAMINOPHEN 650 MG SUPP.RECT PR PRN (00:27)
[2020-08-07] MEDS ORDERED: ZOLPIDEM TARTRATE 5 MG TABLET PO PRN (00:27)
[2020-08-07] MEDS ORDERED: MAGNESIUM HYDROXIDE SUSP 30 ML UDCUP PO PRN (00:27)
[2020-08-07] MEDS ORDERED: PSEUDOEPHEDRINE HCL 30 MG TABLET PO PRN (00:27)
[2020-08-07] MEDS ORDERED: PROMETHAZINE HCL 25 MG TABLET PO PRN (00:27)
[2020-08-07] MEDS ORDERED: MISOPROSTOL 0.2 MG TABLET PR PRN (00:27)
[2020-08-07] MEDS ORDERED: DIBUCAINE 1% OINTMENT 28 GM TP PRN (00:27)
[2020-08-07] MEDS ORDERED: PROMETHAZINE HCL INJ 25 MG/1 ML VIAL IV PRN (00:27)
[2020-08-07] MEDS ORDERED: DIPH/PERTUSS(ACELL)/TETANUS VAC/PF 0.5 ML SYR (>=10YO) IM PRN (00:27)
[2020-08-07] MEDS ORDERED: BENZOCAINE/MENTHOL AEROSOL SPRAY 56 ML ONE (00:48)
[2020-08-07] MEDS: IBUPROFEN 800 MG TABLET PO SCH ×4 (02:00→21:05)
[2020-08-07] MEDS: DOCUSATE SODIUM 100 MG CAPSULE PO SCH ×2 (09:55→17:25)
[2020-08-07] MEDS: FAMOTIDINE 20 MG TABLET PO SCH ×2 (09:55→21:05)
[2020-08-07] MEDS: FERROUS SULFATE 325 MG TABLET PO SCH ×2 (09:55→17:25)
[2020-08-07] MEDS: SENNOSIDES/DOCUSATE 8.6-50 MG 1 EACH TABLET PO SCH (09:56)
[2020-08-07] MEDS: PRENATAL VITAMIN W DHA CAPSULE PO SCH (09:56)
--- NOTE | 2020-08-07 11:17 | PDOC PROGRESS REPORT ---
Subjective-OB Progress Note for:: 08/07/20 Subjective: Pt doing well, no concerns. She reports light bleeding reg diet and voiding w/o difficulty. Physical Exam (OB) Vital Signs: Temp Pulse Resp BP Pulse Ox 98.1 F 93 18 118/61 99 08/07/20 09:04 08/07/20 08:35 08/07/20 08:35 08/07/20 08:35 08/07/20 08:35 Intake & Output 08/06/20 08/07/20 08/08/20 06:59 06:59 06:59 Output Total 500 Balance -500 Weight 64.8 kg - PIH/Pre-Eclampsia Clonus: Negative Headache: Absent Epigastric Pain: No Visual Changes: No - Maternal Morbidity 59. Maternal Morbidity (serious complications experinced by the mother associated with labor and delivery: None of the above - Lochia Lochia Amount: Scant < 10 ml Lochia Color: Rubra/Red - Abdomen Description: Soft Hernia Present: No Fundal Description: Firm, Midline Fundal Height: u/u - u/2 Objective-Diagnostic Laboratory: 08/06/20 09:12 Assessment and Plan(PN) - Assessment and Plan (1) Gestational diabetes mellitus, antepartum Qualifiers: Gestational diabetes mellitus control: diet-controlled Qualified Code(s): O24.410 - Gestational diabetes mellitus in , diet controlled Is this a current diagnosis for this admission?: Yes (2) Laceration, obstetrical, first degree Is this a current diagnosis for this admission?: Yes (3) Vaginal delivery Is this a current diagnosis for this admission?: Yes - Time Spent with Patient Time with patient: Less than 15 minutes Medications reviewed and adjusted accordingly: Yes - Disposition Anticipated Discharge Disposition: Home, Self Care Anticipated Discharge Timeframe: within 24 hours
[2020-08-08] MEDS: IBUPROFEN 800 MG TABLET PO SCH (05:47)
[2020-08-08 08:12] VITALS: BP 97/53
[2020-08-08 08:35] LABS: HEMATOCRIT 31.3 % (36.0-47.0); MEAN CORPUSCULAR HEMOGLOBIN 30.3 pg (27.0-33.4); MEAN CORPUSCULAR HGB CONC 34.2 g/dL (32.0-36.0); MEAN CORPUSCULAR VOLUME 89 fl (80-97); PLATELET COUNT 168 10^3/uL (150-450); RED BLOOD COUNT 3.54 10^6/uL (3.72-5.28); WHITE BLOOD COUNT 12.5 10^3/uL (4.0-10.5)
[2020-08-08 08:38] LABS: HEMOGLOBIN 10.7 g/dL (12.0-15.5)
[2020-08-08] MEDS: PRENATAL VITAMIN W DHA CAPSULE PO SCH (10:17)
[2020-08-08] MEDS: FAMOTIDINE 20 MG TABLET PO SCH (10:17)
[2020-08-08] MEDS: DOCUSATE SODIUM 100 MG CAPSULE PO SCH (10:17)
[2020-08-08] MEDS: FERROUS SULFATE 325 MG TABLET PO SCH (10:17)
[2020-08-08] MEDS: SENNOSIDES/DOCUSATE 8.6-50 MG 1 EACH TABLET PO SCH (10:18)
--- NOTE | 2020-08-08 11:15 | PDOC PROGRESS REPORT ---
Subjective-OB Progress Note for:: 08/08/20 Subjective: Doing well, no c/o, ready to go home, lost glucometer so cannot check her PP BS, trying to breast feed, talking with nurse before she leaves, moderate lochia Physical Exam (OB) Vital Signs: Temp Pulse Resp BP Pulse Ox 97.6 F 74 17 97/53 L 100 08/08/20 08:00 08/08/20 08:00 08/08/20 08:00 08/08/20 08:00 08/08/20 08:00 Intake & Output 08/07/20 08/08/20 08/09/20 06:59 06:59 06:59 Intake Total 520 120 Output Total 500 Balance -500 520 120 Weight 64.8 kg - PIH/Pre-Eclampsia Clonus: Negative Headache: Absent Epigastric Pain: No Visual Changes: No - Maternal Morbidity 59. Maternal Morbidity (serious complications experinced by the mother associated with labor and delivery: None of the above - Lochia Lochia Amount: Small 10-25 ml Lochia Color: Rubra/Red - Abdomen Description: Tender Hernia Present: No Fundal Description: Firm, Midline Fundal Height: u/u - u/2 Objective-Diagnostic Laboratory: 08/08/20 07:49 08/08/20 07:49 WBC 12.5 H RBC 3.54 L Hgb 10.7 L D Hct 31.3 L MCV 89 MCH 30.3 MCHC 34.2 RDW 14.0 Plt Count 168 Assessment and Plan(PN) - Assessment and Plan (1) Gestational diabetes mellitus, antepartum Qualifiers: Gestational diabetes mellitus control: diet-controlled Qualified Code(s): O24.410 - Gestational diabetes mellitus in , diet controlled Is this a current diagnosis for this admission?: Yes (2) Laceration, obstetrical, first degree Is this a current diagnosis for this admission?: Yes (3) Vaginal delivery Is this a current diagnosis for this admission?: Yes - Time Spent with Patient Time with patient: Less than 15 minutes Medications reviewed and adjusted accordingly: Yes - Disposition Anticipated Discharge Disposition: Home, Self Care Anticipated Discharge Timeframe: within 24 hours
--- NOTE | 2020-08-08 11:18 | PDOC DISCHARGE SUMMARY ---
Impression - Admit/DC Date/PCP Admission Date/Primary Care Provider: 08/06/20 08:42 CHRIS GUAJARDO MD Discharge Date: 08/08/20 - Discharge Diagnosis (1) Gestational diabetes mellitus, antepartum Is this a current diagnosis for this admission?: Yes (2) Laceration, obstetrical, first degree Is this a current diagnosis for this admission?: Yes (3) Vaginal delivery Is this a current diagnosis for this admission?: Yes - Additional Information Resuscitation Status: Full Code Discharge Diet: As Tolerated, Regular Discharge Activity: Activity As Tolerated Referrals: CHRIS GUAJARDO MD [Primary Care Provider] - Home Medications: Vit,Calc76/Iron/Folic [Prenatabs Rx Tablet] 1 each PO DAILY 04/29/20 HPI Gestational Age: 39.5 Procedures: Ultrasound Intrapartum Procedure(s): Spontaneous Vaginal Delivery Complication(s): Laceration-Labial - maternal fever, heavy mec Hospital Course Hospital Course: routine 59. Maternal Morbidity (serious complications experinced by the mother ass ociated with labor and delivery: None of the above Results Laboratory Results: WBC 12.5 10^3/uL (4.0-10.5) H 08/08/20 07:49 RBC 3.54 10^6/uL (3.72-5.28) L 08/08/20 07:49 Hgb 10.7 g/dL (12.0-15.5) L D 08/08/20 07:49 Hct 31.3 % (36.0-47.0) L 08/08/20 07:49 MCV 89 fl (80-97) 08/08/20 07:49 MCH 30.3 pg (27.0-33.4) 08/08/20 07:49 MCHC 34.2 g/dL (32.0-36.0) 08/08/20 07:49 RDW 14.0 % (11.5-14.0) 08/08/20 07:49 Plt Count 168 10^3/uL (150-450) 08/08/20 07:49 Lymph % (Auto) 12.1 % (13-45) L 08/06/20 09:12 [place] % (Auto) 4.8 % (3-13) 08/06/20 09:12 Eos % (Auto) 0.1 % (0-6) 08/06/20 09:12 Baso % (Auto) 0.3 % (0-2) 08/06/20 09:12 Absolute Neuts (auto) 8.3 10^3/uL (1.7-8.2) H 08/06/20 09:12 Absolute Lymphs (auto) 1.2 10^3/uL (0.5-4.7) 08/06/20 09:12 Absolute Monos (auto) 0.5 10^3/uL (0.1-1.4) 08/06/20 09:12 Absolute Eos (auto) 0.0 10^3/uL (0.0-0.6) 08/06/20 09:12 Absolute Basos (auto) 0.0 10^3/uL (0.0-0.2) 08/06/20 09:12 Seg Neutrophils % 82.7 % (42-78) H 08/06/20 09:12 POC Glucose 91 mg/dL (70-110) 08/07/20 08:59 Urine Color YELLOW 08/06/20 08:49 Urine Appearance CLEAR 08/06/20 08:49 Urine pH 6.0 (5.0-9.0) 08/06/20 08:49 Ur Specific [place] 1.013 08/06/20 08:49 Urine Protein NEGATIVE mg/dL (NEGATIVE) 08/06/20 08:49 Urine Glucose (UA) NEGATIVE mg/dL (NEGATIVE) 08/06/20 08:49 Urine Ketones 80 mg/dL (NEGATIVE) H 08/06/20 08:49 Urine Blood SMALL (NEGATIVE) H 08/06/20 08:49 Urine Nitrite NEGATIVE (NEGATIVE) 08/06/20 08:49 Urine Bilirubin NEGATIVE (NEGATIVE) 08/06/20 08:49 Urine Urobilinogen NEGATIVE mg/dL (<2.0) 08/06/20 08:49 Ur Leukocyte Esterase TRACE (NEGATIVE) H 08/06/20 08:49 Urine Ascorbic Acid NEGATIVE (NEGATIVE) 08/06/20 08:49 Urine Opiates Screen NEGATIVE 08/06/20 08:49 Urine Methadone Screen NEGATIVE 08/06/20 08:49 Ur Barbiturates Screen NEGATIVE 08/06/20 08:49 Ur Phencyclidine Scrn NEGATIVE 08/06/20 08:49 Ur Amphetamines Screen NEGATIVE 08/06/20 08:49 U Benzodiazepines Scrn NEGATIVE 08/06/20 08:49 Urine Cocaine Screen NEGATIVE 08/06/20 08:49 U Marijuana (THC) Screen NEGATIVE 08/06/20 08:49 RPR NONREACTIVE (NONREACTIVE) 08/06/20 09:12 Blood Type A POSITIVE 08/06/20 09:12 Antibody Screen NEGATIVE 08/06/20 09:12 Plan Health Concerns: , routine Plan of Treatment: rev S&S to report, see nurse before d/c Goals: no complications Time Spent: Less than 30 Minutes
--- NOTE | 2020-08-12 15:09 | Delivery Summary ---
Del Sum A-C Datetime Report Generated by CPN: 08/12/2020 15:08 DELIVERY PERSONNEL DELIVERY PERSONNEL: [id number] Delivery Doctor:: Alyssa Carranza MD Labor and Delivery Nurse:: Georgina Hoover RN Labor and Delivery Nurse:: Jemma Garcia RN Nursery Nurse:: Janie Sidhu RN Nursery Nurse:: ALEXI Keane Disintegrator Feeder/HORTICULTURE SUPERINTENDENT: [place], ST MATERNAL INFORMATION Delivery Anesthesia: Epidural Medications After Delivery: Pitocin 30 Units in 500ml NS/D5W Estimated Blood Loss (ml): 300 Delivery QBL: 100 Maternal Complications: Maternal Fever Provider Comments: Called to patients room as she was complete and +3 . She pushed through an additional 15-20 minutes of contractions and delivered a viable male . After the head, the shoulders and rest of the body followed. Infant was vigorous at delivery and cord clamping delayed for 30 seconds. After cord clamped and cut, was handed off to the nursery staff for suctioning due to heavy meconium. then placed skin to skin with MOther and then Dad. Both infant and mother stable LABOR SUMMARY EDC: 08/08/2020 00:00 No. Babies in Womb: 1 Attempted: No Labor Anesthesia: Intrathecal LABOR INFORMATION Reason for Induction: Not Applicable Onset of Labor: 08/06/2020 09:30 Complete Dilatation: 08/06/2020 22:14 Oxytocin: Augmentation Group B Beta Strep: Negative Antibiotics # of Doses: n/a Name of Antibiotic Given: n/a Steroids Given: None Reason Steroids Not Administered: Not Applicable MEMBRANES Membranes Rupture Method: Artificial Rupture of Membranes: 08/06/2020 15:20 Length of Rupture (hr): 8.27 Amniotic Fluid Color: Moderate Meconium Amniotic Fluid Amount: Large Amniotic Fluid Odor: Normal STAGES OF LABOR Stage 1 hr: 12 Stage 1 min: 44 Stage 2 hr: 1 Stage 2 min: 22 Stage 3 hr: 24 Stage 3 min: 4 Total Time in Labor hr: 38 Total Time in Labor min: 10 VAGINAL DELIVERY Episiotomy: None Laceration #1: None Other Laceration: bilateral labial tear with repair Laceration Repair: Yes Laceration Repair Note: 3-0 chromic in a running fashion Sponge Count Correct: Yes Sharps Count Correct: Yes CSECTION DELIVERY Primary Indication: N/A CSection Incision: N/A BABY A INFORMATION Infant Delivery Date/Time: 08/06/2020 23:36 Method of Delivery: Vaginal Born in Route : No : N/A Forceps: N/A Vacuum Extraction: N/A Shoulder Dystocia : No PRESENTATION/POSITION BABY A Presentation: Cephalic Cephalic Presentation: Vertex Vertex Position: Left Occipital Anterior Breech Presentation: N/A PLACENTA INFORMATION BABY A Placenta Delivery Time : 08/07/2020 23:40 Placenta Method of Delivery: Spontaneous Placenta Status: Delivered SCORES BABY A Heart Rate 1 min: >100 bpm Resp Effort 1 min: Slow, Irregular Reflex Irritability 1 min: [place] Muscle Tone 1 min: Some Flexion of Extremities Color 1 min: Blue/Pale Resuscitation Effort 1 min: Tactile Stimulation SCORE 1 MIN: 5 Heart Rate 5 min: >100 bpm Resp Effort 5 min: [place] Reflex Irritability 5 min: Cough or Sneeze or Pulls Away Muscle Tone 5 min: Some Flexion of Extremities Color 5 min: Body [place], Extremities Blue SCORE 5 MIN: 8 INFORMATION BABY A Gestational Age at Delivery: 39.5 Gestational Status: Full Term- 39- 40.6 Weeks Outcome : Liveborn Condition : Stable Sex: Male IDENTIFICATION BABY A Verification Date/Time: 08/06/2020 23:42 ID Band Number: [id number] Mother's Name Verified: Yes Infant RN Verifying : RDao Garcia, RN Additional Verifying Personnel: L. Lawanda, ST WEIGHT/LENGTH BABY A Infant Birthweight (gm): 3750 Infant Weight (lb): 8 Weight (oz): 4 Infant Length (in): 21.00 Length (cm): 53.34 CORD INFORMATION BABY A No. Cord Vessels: 3 Nuchal Cord : N/A Cord Blood Taken: Yes-For Storage (Mom's Blood type +) Suction: Mouth; Nose ASSESSMENT BABY A Infant Complications: None Physical Findings at Delivery: Within Normal Limits Respirations: Appears Normal Skin to Skin: Yes Skin to Skin: Yes Transferred To: Remains with Mother BABY B INFORMATION : N/A SIGNATURES Signature: with User ID: Eliza : with User ID: Eliza
== END 2020-08-08 14:25 | disposition home or self-care (01) | DRG 806 ==
LOC: LR 08:42 → 2S 08-07 02:00
PROVIDERS: ADMIT Obstetrics & Gynecology; ATTEND Obstetrics & Gynecology
PROC: 10E0XZZ Delivery of Products of Conception, External Approach (ICD-10-PCS; principal; 2020-08-06)
PROC: 0HQ9XZZ Repair Perineum Skin, External Approach (ICD-10-PCS; 2020-08-06)
PROC: 10907ZC Drainage of Amniotic Fluid, Therapeutic from Products of Conception, Via Natural or Artificial Opening (ICD-10-PCS; 2020-08-06)
DX: O24.420 Gestational diabetes mellitus in childbirth, diet controlled (principal); O75.2 Pyrexia during labor, not elsewhere classified; Z37.0 Single live birth; O70.0 First degree perineal laceration during delivery; O77.0 Labor and delivery complicated by meconium in amniotic fluid; Z3A.39 39 weeks gestation of pregnancy
CPT/HCPCS: 1967; 36415; 80307; 81005; 82962; 85025; 85027; 86592; 86850; 86900; 86901; 94760; J1200; J2590; J2795; J3010; J3490